=== PATIENT | male | born 1975 | race Caucasian/White ===

== ENCOUNTER 2018-10-28 04:20 | Emergency (ER) | payer SELFPAY ==
[~2018-10-28] VITALS: Ht 177.8 cm; Wt 81.6 kg
[2018-10-28] VITALS (10 sets, daily range): BP systolic 109–155; BP diastolic 48–78
[~2018-10-28 04:20] MED LIST: MACROBID100 M1 PO; NAPROSYN500 MG PO; VICODIN 500 MG-1 TAB PO; ZOFRAN4 MG PO
--- NOTE | 2018-10-28 06:43 | NUR ---
MEDICATED WITH DILAUDID IV PER ORDER, FOR C/O RIGHT BUTTOCK PAIN. RATES PAIN 7 ON PAIN SCALE 0-10. ALSO MEDICATED WITH ZOFRAN FOR NAUSEA, SEE EMAR.
[2018-10-28 06:59] LABS: BASO # 0.1 10*3/uL (0.0-0.1); BASO % 0.4 % (0.0-1.0); EOS # 0.3 10*3/uL (0.0-0.4); EOS % 2.2 % (1.0-4.0); HEMATOCRIT 55.3 % (42.0-52.0); HEMOGLOBIN 18.9 g/dl (14.0-18.0); LYMPH # 2.2 10*3/uL (1.3-4.4); MEAN CELL VOLUME 103.2 fl (80.0-94.0); MEAN CORPUSCULAR HGB 35.3 pg (27.0-31.0); MEAN CORPUSCULAR HGB CONC 34.2 g/dl (33.0-37.0); MEAN PLATELET VOLUME 9.7 fl (9.6-12.3); MONO % 7.5 % (3.0-9.0); NEUT # 10.2 10*3/uL (2.3-7.9); NEUT % 73.3 % (47.0-73.0); PLATELET COUNT AUTOMATED 260 10*3/uL (130-400); RED BLOOD COUNT 5.36 10*6/uL (4.50-5.90); RED CELL DISTRI WIDTH 13.6 % (0-14.5); WHITE BLOOD COUNT 13.9 10*3/uL (4.8-10.8)
[2018-10-28 07:12] LABS: ALKALINE PHOSPHATASE 87 U/L (45-117); BUN 8 mg/dl (7-24); CHLORIDE 110 mmol/L (98-107); CREATININE 0.58 mg/dL (0.70-1.30); POTASSIUM 3.7 mmol/L (3.5-5.1); SGOT/AST 10 IU/L (3-35); SGPT/ALT 15 U/L (12-78); SODIUM 140 mmol/L (136-145); TOTAL PROTEIN 6.3 gm/dL (6.4-8.2)
--- NOTE | 2018-10-28 09:43 | NUR ---
Patient given 10mg of Atomidate to sedation for I&D procedure. Patient continues to be lightly sedated. Per Dr. Resendiz, patient given 10mg of Atomidate. Patient became sedated. VSS. Dr. Resendiz started procedure.
--- NOTE | 2018-10-28 09:50 | NUR ---
Patient started to arouse, moving due to pain from procedure. 20mg of Atomidate given IV and flushed with 0.9NS. Patient became more sedated. Dr. Resendiz finished procedure and packed wound. Photo of wound taken post I&D. Will continue to monitor.
--- NOTE | 2018-10-28 10:10 | NUR ---
Patient became awake, alert. Patient reports feeling comfortable. Fiance brought back into ready.
--- NOTE | 2018-10-28 11:04 | NUR ---
Patient adamant he does not want to be admitted. Dr. Resendiz notified.
[2018-10-28] MEDS ORDERED: TYLENOL325 M1 PO (11:13)
[2018-10-28] MEDS ORDERED: AUGMENTIN 875875 MG PO (11:13)
[2018-10-28] MEDS ORDERED: Motrin,Rufen400 MG PO (11:13)
== END 2018-10-28 11:21 | disposition home or self-care (01) ==
LOC: ED 04:20 → EDHOLD 10:08 → ED 10:08 → 4E 10:17 → EDHOLD 10:17 → ED 11:21
PROVIDERS: Emergency Medicine
DX: L02.31 Cutaneous abscess of buttock (principal); L03.317 Cellulitis of buttock

== ENCOUNTER 2018-10-30 09:51 | Emergency (ER) | payer SELFPAY ==
[~2018-10-30] VITALS: Ht 177.8 cm; Wt 81.6 kg
[~2018-10-30 09:51] MED LIST changes: +AUGMENTIN 875875 MG PO; +Motrin,Rufen400 MG PO; +TYLENOL325 M1 PO
[2018-10-30] MEDS ORDERED: SEPTDS PO (10:52)
== END 2018-10-30 10:56 | disposition home or self-care (01) ==
LOC: ED 09:51
DX: L02.31 Cutaneous abscess of buttock (principal); Z48.01 Encounter for change or removal of surgical wound dressing